=== PATIENT | male | born 1960 | race Caucasian/White ===

== ENCOUNTER → 2017-01-19 | Outpatient (CLI) | payer OTHER ==
[~2017-01-19] MED LIST: FLOMAX PO; FLOMAX0.4 MG PO; HYDROCODONE-AP1 EA11 PO; NOHOMEMEDICATIONS; NORCO 5-325 TA1 EACH PO; OMEPRAZOLE 20 M20 M1 PO; ZOFRAN ODT4 MG PO
== END ==
LOC: RAD 09:44
DX: N20.0 Calculus of kidney (principal); M41.86 Other forms of scoliosis, lumbar region; R10.9 Unspecified abdominal pain

== ENCOUNTER → 2017-12-04 | Outpatient (CLI) | payer OTHER ==
[~2017-12-04] MED LIST changes: +CENTRUM SILVER1 EAC4 PO; +LIPITOR10 MG PO; +XANAX 0.5 MG0.5 MG PO
== END ==
LOC: CAT 07:57
DX: Z13.6 Encounter for screening for cardiovascular disorders (principal)

== ENCOUNTER → 2018-01-13 | Outpatient (CLI) | payer OTHER ==
[~2018-01-13] VITALS: Ht 177.8 cm; Wt 83.9 kg
--- NOTE | ~2018-01-13 | S ---
[facility] [place] [address] SURGICAL PATH RPT PROCEDURE Name: UZIEL VIDAL Room #: REG LISA Sandi#: [id number] Admission: 01/13/18 Date of : 60 Discharge: Report #: [id number] Path Case #: [id number] PATHOLOGY REPORT COLLECTION DATE: 01/13/2018 RECEIVED DATE: 01/13/2018 SUBMITTING PHYS: Dr. Win Martinez OTHER PHYS: Dr. Masood Portillo SPECIMEN(S) RECEIVED: A.Ascending polyp * * * * * * * * * * * * FINAL DIAGNOSIS: Polyp, at ascending colon, endoscopic biopsy: - Hyperplastic polyp. - Negative for dysplasia. (IUV:mml; 01/14/2018) PATHOLOGIST: Rehana Cardona M.D. REPORT ELECTRONICALLY SIGNED BY: Rehana Cardona M.D. DATE/TIME: 01/14/2018 14:50 * * * * * * * * * * * * GROSS PATHOLOGY: Received in formalin labeled "Uziel Vidal, polyp at ascending colon" and consists of a 0.3 cm soft powers tissue fragment which is entirely submitted as A1. (TRINA; 01/13/2018) CLINICAL HISTORY: History of polyps INITIAL CPT CODE(S): A; 89059 Professional services performed by [facility] at [facility] [address] [place], [place] [address] Technical services performed by [facility] at [address] [place] [address]., [address], [place] [address]. [facility] [address] [place] [address] SURGICAL PATH RPT PROCEDURE Name: UZIEL VIDAL Room #: REG KESHIA Junior#: [id number] Admission: 01/13/18 Date of : 60 Discharge: Report #: [id number] Path Case #: [id number] [address] PHONE: [phone] DIRECTOR: Ryan Price M.D. * * * END OF REPORT * * *
--- NOTE | ~2018-01-13 | P ---
[facility] [place] [address] PROCEDURE REPORT Name: ANN-MARIE VIDAL Room #: REG KESHIA Sandi#: [id number] Admission: 01/13/18 Attend Phys: Win Mac Discharge: Date of : 60 Report #: [id number] THIS REPORT FOR: //name// CC: Win Portillo MD DATE OF SERVICE: 01/13/2018 PROCEDURE PERFORMED: Upper endoscopy. HISTORY OF PRESENT ILLNESS: The patient is a 58-year-old male with a history of gastroesophageal reflux disease, previous upper endoscopy several years ago showed grade C erosive esophagitis. He was also dilated at that time for dysphagia. Biopsies were obtained, which were negative for Nam's esophagus. The patient has been on daily omeprazole since that time. He denies any further dysphagia. Overall, his symptoms are under good control. PROCEDURE: The risks and benefits of the procedure were explained to the patient, those risks including, but not limited to bleeding, perforation, and the risk of sedation. He understood these risks and gave informed consent. Sedation was given using propofol per anesthesia. Next, using a standard iMedicaren upper endoscope, the scope was placed in the patient's mouth and advanced under direct vision through the esophagus, stomach and into the second portion of the duodenum. The larynx was normal in appearance. The esophagus was normal throughout. The GE junction was normal. There was no evidence of esophagitis or Nam's. Upon entering the stomach, a small hiatal hernia was noted. Overall, the gastric mucosa was normal. The pylorus was normal and patent. The duodenal bulb, first and second portion were all normal. The scope was then withdrawn and procedure terminated. The patient tolerated the procedure well. IMPRESSION: 1. Small hiatal hernia. 2. Otherwise, normal upper endoscopy. RECOMMENDATIONS: 1. Continue daily PPI therapy. 2. We will proceed with colonoscopy next today. Thank you for allowing me to participate in his care. <ELECTRONICALLY SIGNED> By: Win Martinez MD 01/15/18 0804 [id number] Win Martinez MD /nt
--- NOTE | ~2018-01-13 | P ---
[facility] [place] [address] PROCEDURE REPORT Name: ANN-MARIE VIDAL Room #: REG KESHIA Sandi#: [id number] Admission: 01/13/18 Attend Phys: iWn Mac Discharge: Date of : 60 Report #: [id number] THIS REPORT FOR: //name// CC: Win Portillo MD DATE OF SERVICE: 01/13/2018 PROCEDURE PERFORMED: Colonoscopy with biopsies. HISTORY OF PRESENT ILLNESS: The patient is a 58-year-old male who presents today for a 5-year followup colonoscopy with a history of polyps. No family history of colon cancer. He denies any symptoms. PROCEDURE: The risks and benefits of the procedure were explained to the patient, those risks including, but not limited to bleeding, perforation, and the risk of sedation. He understood these risks and gave informed consent. Sedation was given using propofol per anesthesia. Next, using a standard Fujinon colonoscope, the scope was placed in the patient's anus and advanced under direct vision to the cecum. The overall prep was excellent. The cecum and ileocecal valve were normal in appearance. In the ascending colon, a 4-mm sessile polyp was noted, this was removed with cold forceps, otherwise normal. Transverse and descending colon were normal. Multiple small diverticula were again noted in the sigmoid colon, no evidence of inflammation, otherwise normal. The rectal mucosa was normal. On retroflexion, no abnormalities were noted. The scope was then withdrawn and the procedure terminated. The patient tolerated the procedure well. IMPRESSION: 1. Small colonic polyp. 2. Sigmoid diverticulosis. 3. Otherwise, normal colonoscopy. RECOMMENDATIONS: Await biopsy results. If polyp is hyperplastic, repeat in 10 years; if adenomatous polyp, repeat in 5 years. Thank you for allowing me to participate in his care. <ELECTRONICALLY SIGNED> By: Win Martinez MD 01/15/18 0804 [id number] [id number] Win Martinez MD /nt
== END | disposition home or self-care (01) ==
LOC: GI 06:55
DX: Z09 Encounter for follow-up examination after completed treatment for conditions other than malignant neoplasm (principal); Z86.010 Personal history of colon polyps; K63.5 Polyp of colon; K57.30 Diverticulosis of large intestine without perforation or abscess without bleeding; K44.9 Diaphragmatic hernia without obstruction or gangrene; E78.5 Hyperlipidemia, unspecified; N40.0 Benign prostatic hyperplasia without lower urinary tract symptoms; Z87.442 Personal history of urinary calculi; Z79.899 Other long term (current) drug therapy; Z90.49 Acquired absence of other specified parts of digestive tract; Z87.19 Personal history of other diseases of the digestive system; Z98.890 Other specified postprocedural states
CPT/HCPCS: 62110; 62900

== ENCOUNTER → 2018-10-26 | Outpatient (CLI) | payer OTHER | LOC: RAD 15:06 | DX: R05 Cough (principal) ==

== ENCOUNTER → 2020-11-20 | Outpatient (CLI) | payer OTHER ==
[2020-11-20 09:23] LABS: BASOPHILS 1.1 % (0.0-2.0); EOSINOPHILS 2.4 % (0.0-3.0); HEMATOCRIT 44.7 % (42.0-52.0); LYMPHOCYTES 24.5 % (24.0-44.0); MCH 28.8 pg (26.0-34.0); MCHC 33.6 g/dL (28.0-37.0); MCV 85.9 fL (80.0-100.0); MONOCYTES 10.2 % (1.0-8.0); PLATELET COUNT 234 thou/uL (150-400); POLYS 61.8 % (36.0-66.0); RDW 13.9 % (10.5-14.5); WBC 4.9 thou/uL (4.0-11.0)
[2020-11-20 09:44] LABS: ALBUMIN 3.8 g/dL (3.4-5.0); ANION GAP 8 mmol/L (7-16); BUN 12 mg/dL (7-18); CALCIUM 8.7 mg/dL (8.5-10.1); CHLORIDE 104 mmol/L (98-107); CHOLESTEROL 150 mg/dL (<200); CO2 26 mmol/L (21-32); GLUCOSE 98 mg/dL (74-106); HDL CHOLESTEROL 52 mg/dL (>40); LDL CHOLESTEROL 83 mg/dL (<100); POTASSIUM 4.1 mmol/L (3.5-5.1); SGOT 15 U/L (15-37); SGPT 32 U/L (30-65); SODIUM 138 mmol/L (136-145); TC:HDL 2.9 Ratio (Not establshd); TOTAL BILIRUBIN 0.9 mg/dL (0.2-1.0); TOTAL PROTEIN 6.6 g/dL (6.4-8.2); TRIGLYCERIDE 78 mg/dL (<150); VLDL 16 mg/dL (<40)
== END ==
LOC: LAB 08:17
PROVIDERS: ATTEND Nurse Practitioner
DX: Z00.00 Encounter for general adult medical examination without abnormal findings (principal); E78.5 Hyperlipidemia, unspecified